=== PATIENT | male | born 1965 | race Caucasian/White ===

== ENCOUNTER 2018-10-30 12:32 | Day surgery (SDC) | payer OTHER ==
[2018-10-30] MEDS ORDERED: PROPOFOL 20 ML (16:46)
[2018-10-30] MEDS ORDERED: MIDAZOLAM 1 MG/ML 2 ML INJ (16:46)
[2018-10-30] MEDS ORDERED: LIDOCAINE 2% (SDV) 5 ML INJ (16:46)
== END 2018-10-30 17:32 | disposition home or self-care (01) ==
LOC: GIL 12:32
DX: Z12.11 Encounter for screening for malignant neoplasm of colon (principal); K64.8 Other hemorrhoids
CPT/HCPCS: 45378